=== PATIENT | female | born 1990 | race Caucasian/White ===

== ENCOUNTER 2017-04-01 15:46 | Emergency (ER) | payer OTHER ==
--- NOTE | 2017-04-01 16:32 | RAD ---
04/01/2017 4:28 PM ANKLE-RIGHT 3 VIEW History: 1 week ago patient injured right lateral ankle onto chest. Ecchymosis and pain. Initial encounter. Technique: 3 view Ankle Side:Right Comparison: None Findings: Bones: No fracture or dislocation. Joints: The ankle mortise is normally aligned. Joints:Remaining joints are unremarkable. Associated Findings:Normal Impression: 1. No fracture or dislocation.
== END 2017-04-01 17:39 | disposition home or self-care (01) ==
LOC: ED 15:46
DX: S99.911A Unspecified injury of right ankle, initial encounter (principal); F17.210 Nicotine dependence, cigarettes, uncomplicated; W22.8XXA Striking against or struck by other objects, initial encounter; Y92.9 Unspecified place or not applicable